=== PATIENT | female | born 2000 | race Caucasian/White ===

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

== ENCOUNTER 2019-02-14 10:48 | Emergency (ER) | payer MEDICAID, SELFPAY ==
[2019-02-14 10:51] VITALS: BP 132/86; PULSE 86; RESP 16; TEMP 36.7; O2SAT 99
--- NOTE | 2019-02-14 11:04 | NUR.NOTE ---
Nursing Note: Patient reports that she has a date that she plans on hanging herself. This date being the . She says that this will give her enough time to decide if it is what she really wants. She says she has tried to kill herself by cutting, OD and hanging herself before. She denies any changes in her life or any factors that have caused her to begin feeling this way again. She was made aware of the plan of care in the ER and what the expectations are.
--- NOTE | 2019-02-14 11:08 | NUR.NOTE ---
Nursing Note: cuts noted to LFA that are about a week old as the patient reports.
[2019-02-14 11:32] LABS: Bilirubin Negative (Negative); Blood Negative (Negative); Clarity Clear (Clear); Glucose Negative (Negative); Ketones Negative (Negative); Leukocyte Esterase Negative (Negative); Nitrite Negative (Negative); Specific Gravity 1.015 (1.005-1.025); Urobilinogen 0.2 EU/dL (Up TO 0.2)
[2019-02-14 11:36] LABS: Abs Immature Grans 0.02 k/cumm (0.0-0.09); Absolute Basophil Count 0.02 k/cumm (0.0-0.2); Absolute Eosinophil Count 0.15 k/cumm (0.0-0.7); Absolute Lymphocyte Count 2.24 k/cumm (1.2-3.4); Absolute Monocyte Count 0.81 k/cumm (0.11-0.7); Absolute Neutrophil Count 4.85 k/cumm (1.2-6.7); Basophils % 0.2; Eosinophils % 1.9; HCT 40.8 % (36.0-46.0); HGB 13.9 g/dL (12.0-15.5); Immature Grans % 0.2; Lymphocytes % 27.7; Mean Corp. HGB Concentration 34.1 g/dL (32.0-36.0); Mean Corpuscular Hemoglobin 30.9 pg (27.0-33.0); Mean Corpuscular Volume 90.7 fL (80-95); Mean Platelet Volume 10.2 fL (8.0-11.0); Platelet Count 285 x1000/uL (130-400); RBC Distribution Width 12.9 % (11.7-14.6); White Blood Cell Count 8.09 k/cumm (4.4-10.8)
[2019-02-14 11:40] LABS: *AMPHETAMINES SCREEN URINE Negative (Negative); *BARBITURATES SCREEN URINE Negative (Negative); *BENZODIAZEPINES SCREEN URINE Negative (Negative); Cannabinoids THC POSITIVE (Negative); Cocaine Screen,Urine Negative (Negative); METHADONE URINE SCREEN Negative (Negative); OPIATES URINE SCREEN Negative (Negative)
[2019-02-14 11:41] LABS: Tricyclic Antidepressants Negative (Negative)
[2019-02-14 11:58] LABS: ALT 14 U/L (14-59); AST 13 U/L (15-37); Albumin 3.6 g/dL (3.4-5.0); Alkaline Phosphatase 63 U/L (46-116); Anion Gap 12.3 mmol/L (3-11); BUN 10 mg/dL (7-18); Bilirubin, Total 0.2 mg/dL (0.2-1.0); CO2 25.7 mmol/L (21.0-32.0); CREATININE 0.69 mg/dL (0.55-1.02); Calcium 8.4 mg/dL (8.5-10.1); Chloride 104 mmol/L (98-107); Glucose 81 mg/dL (70-100); Sodium 142 mmol/L (136-145); TSH (W/Ref FT4) 0.57 uIU/mL (0.52-4.13); Total Protein 7.3 g/dL (6.4-8.2)
[2019-02-14 12:11] LABS: ETHANOL BLOOD < 3.0 mg/dL (<3)
[2019-02-14 12:14] LABS: Salicylate < 2.8 mg/dL (2.8-20.0)
[2019-02-14 12:34] LABS: Acetaminophen < 2 ug/mL (10-30)
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
[2019-02-14] MEDS: Potassium Chloride 20 MEQ TABCR 40 MEQ PO (14:05)
[2019-02-14 14:44] VITALS: BP 118/57; PULSE 77; RESP 14; TEMP 36.9; O2SAT 97
== END 2019-02-14 15:15 | disposition home or self-care (01) ==
PROVIDERS: Emergency Provider Nurse Practitioner Family; PCP Obstetrics & Gynecology
DX: F41.8 Other specified anxiety disorders (principal); R45.851 Suicidal ideations
CPT/HCPCS: 36415; 80053; 80307; 81025; 99285; 80320; 80329; 81003; 84443; 85025; 99284

== ENCOUNTER 2019-04-26 12:57 | Emergency (ER) | payer MEDICAID, SELFPAY ==
[2019-04-26 13:04] VITALS: BP 113/48; PULSE 81; RESP 12; TEMP 36.6; O2SAT 100
--- NOTE | 2019-04-26 13:17 | ED.GENADUL_ITS ---
Discharge Plan Disposition Patient Disposition: HOME Condition: Improving Discharge Details Chief Complaint: Sorethroat Clinical Impression: Pharyngitis Primary Care Provider: None,None ED Provider: Luan Faye Home Meds and New Rx's Prescriptions: Continued ibuprofen 400 mg tablet 400 mg PO Q8H RF: 0 citalopram [Celexa] 20 mg tablet 40 mg PO DAILY Qty: 60 RF: 6 norethindrone (contraceptive) [Ortho Micronor] 0.35 mg tablet 0.35 mg PO DAILY Qty: 84 RF: 3 Discharge Instructions Instructions: Pharyngitis (ED) Additional Instructions: Small, frequent sips of fluids to maintain hydration. May use popsicles for soothing comfort as well. May use Tylenol and/or ibuprofen if needed for pain. Cepacol lozenges and prednisone as prescribed. Return to the emergency department if difficulty swallowing, change to voice, worsening discomfort or any other acute concerns. Medical Decision Making 18-year-old female presents with sore throat for 2 days time. Reports a history of pharyngitis in the past. She has otherwise been well. Her exam is consistent with a mild pharyngitis, there is no overlying exudate. Rapid strep test was negative and a strep screen was sent to the laboratory. We will treat with a short course of steroid for its anti-inflammatory properties. Discussed with her home care as well as return precautions. HPI General Mode of arrival: ambulatory . Date/Time Provider Initiated Documentation: 04/26/19 13:00 . Limitations to Documentation: no limitations . Information obtained by: patient . History of Present Illness 18 year old F presents to the emergency department with the chief complaint of ST x1day, described as mild, Quality is described as constant, and is localized to the mouth. Patient reports no radiation. Patient started experiencing this hour(s) and it has been constant. No relieving factors improve symptom(s), No exacerbating factors reported . Patient notes fever/chills. Related Data Home Medications Medication Instructions Recorded Confirmed ibuprofen 400 mg tablet 400 mg PO Q8H 01/11/19 04/26/19 norethindrone (contraceptive) 0.35 0.35 mg PO DAILY #84 tab 02/28/19 04/26/19 mg tablet citalopram 20 mg tablet 40 mg PO DAILY #60 tab 10/21/19 12/13/19 Previous Rx's Medication Instructions Recorded norethindrone (contraceptive) 0.35 0.35 mg PO DAILY #84 tab 02/28/19 mg tablet citalopram 20 mg tablet 40 mg PO DAILY #60 tab 03/04/19 Allergies Allergy/AdvReac Type Severity Reaction Status Date / Time No Known Allergies Allergy Unverified 04/26/19 13:07 General Stated Complaint: Sorethroat BART: 4 Review of Systems Narrative: 6 systems reviewed and otherwise - PFSH Medical History Bipolar depression Foster care child Incomplete spontaneous (Inactive) Insomnia (Inactive) PTSD (post-traumatic stress disorder) Family History Mother No problems noted. Grandmother Anxiety Other Substance abuse Social History Smoking/Tobacco Use Status: Never Alcohol Intake: former Drug use: Daily Substance use type: marijuana Seatbelt use: always Do you feel safe at home: Yes Do you feel safe in your relationship?: Yes History History 1 Para 0 Hx # Term Pregnancies Multiple births Hx # Pregnancies Ectopic pregnancies AB induced Hx Number of Living Children AB spontaneous 1 Past Pregnancies Del. Date GA/Weeks # Outcome Route Wgt Sex Labor Lgth Anesthes ia Location [facility] 12/11/[address] Chang Delivery Date: 12/11/18 On 12/12/18 @ 09:43 Kathy Jones LPN Pt had a D/C for complete and incomplete SAB Exam Narrative Exam Narrative: GEN: awake, alert, oriented 3. Pleasant, well groomed, interactive. HEAD: Normocephalic, atraumatic ENT: Mucous membranes moist, oropharynx erythematous with mild left tonsillar swelling, the uvula is midline, tympanic membranes clear bilaterally, External ear exam unremarkable EYES: PERRL, EOMI NECK: Full ROM, no JACKELINE, no menigismus CHEST/RESP: Nontender, clear to auscultation bilateral, no wheeze/rhonchi/rales CARDIOVASCULAR: RRR, no murmur, rub patrick. 2+ Rad pulse bilateral EXT: Full ROM, no edema, no rash Neuro: Grossly normal neurologic exam, conversant, interactive. Psych: Speech fluent, thoughts congruent, affect normal Course Vital Signs Vital signs: Vital Signs Temperature 36.6 C 04/26/19 13:04 Pulse 81 04/26/19 13:04 Respiratory Rate 12 04/26/19 13:04 Blood Pressure 113/48 L 04/26/19 13:04 Pulse Oximetry 100 04/26/19 13:04 Temperature 36.6 C 04/26/19 13:04 Temperature Source Temporal Artery Scan 04/26/19 13:04 Pulse 81 04/26/19 13:04 Respiratory Rate 12 04/26/19 13:04 Respiratory Effort Non-Labored 04/26/19 13:06 Blood Pressure 113/48 L 04/26/19 13:04 Blood Pressure Position Sitting 04/26/19 13:04 Pulse Oximetry 100 04/26/19 13:04 Oxygen Delivery Method Room Air 04/26/19 13:04 Oxygen Flow Rate 0 04/26/19 13:04 Pain Level 3 04/26/19 13:04
== END 2019-04-26 13:50 | disposition home or self-care (01) ==
PROVIDERS: Emergency Provider Emergency Medicine
DX: J02.9 Acute pharyngitis, unspecified (principal)
CPT/HCPCS: 87880; 99283; 87081

== ENCOUNTER 2019-05-13 17:22 | Emergency (ER) | payer MEDICAID, SELFPAY ==
[2019-05-13 17:26] VITALS: BP 108/52; PULSE 95; RESP 14; TEMP 36.7; O2SAT 98
--- NOTE | 2019-05-13 17:36 | ED.GENADUL_ITS ---
Discharge Plan Disposition Patient Disposition: HOME Condition: Stable Discharge Details Chief Complaint: RespSymp Clinical Impression: Sinusitis Primary Care Provider: None,None ED Provider: Pepe Jovel Home Meds and New Rx's Prescriptions: New prednisone 20 mg tablet 60 mg PO DAILY 4 Days Qty: 12 RF: 0 Continued ibuprofen 400 mg tablet 400 mg PO Q8H RF: 0 citalopram [Celexa] 20 mg tablet 40 mg PO DAILY Qty: 60 RF: 6 norethindrone (contraceptive) [Ortho Micronor] 0.35 mg tablet 0.35 mg PO DAILY Qty: 84 RF: 3 Cepacol Sore Throat (peace-men) 15-2.6 mg lozenge 1 brandie MM Q4H PRN (Reason: sore throat) Qty: 16 RF: 0 Discharge Instructions Instructions: Sinusitis (ED) Additional Instructions: if not better in a week follow up with provider of your choice if you feel more ill have worsening shortness of breath or high fevers return to the emergency department Medical Decision Making 18 yo female with hx of asthma comes in with chief complaint of sinus pressure and nasal congestion for 3 days without fevers, vomit, rashes, abdominal pain. She is in no distress on exam, has clear lung sounds, clear rhinorrhea and no murmurs and normal oropharynx. Suspect viral uri vs viral sinusitis and given only 3 days of symptoms abx not indicated. She appears wlel systemically and has normal lung exam so doubt pna, do not feel xray or labs indicated. Will d/c and advised f/u in a week if not better or return sooner if worsening Differential Diagnosis Differential Diagnosis: viral uri, sinusitis HPI General Mode of arrival: ambulatory . Date/Time Provider Initiated Documentation: 05/13/19 17:31 . Limitations to Documentation: no limitations . Information obtained by: patient . History of Present Illness 18 year old F presents to the emergency department with the chief complaint of sinus pressure, described as moderate, and it has been constant. No relieving factors improve symptom(s), No exacerbating factors reported . Related Data Home Medications Medication Instructions Recorded Confirmed ibuprofen 400 mg tablet 400 mg PO Q8H 01/11/19 05/13/19 norethindrone (contraceptive) 0.35 0.35 mg PO DAILY #84 tab 02/28/19 05/13/19 mg tablet citalopram 20 mg tablet 40 mg PO DAILY #60 tab 03/04/19 05/13/19 Cepacol Sore Throat (peace-men) 1 brandie MM Q4H PRN #16 each 04/26/19 05/13/19 prednisone 60 mg PO DAILY 4 Days #12 tab 05/13/19 Previous Rx's Medication Instructions Recorded norethindrone (contraceptive) 0.35 0.35 mg PO DAILY #84 tab 02/28/19 mg tablet citalopram 20 mg tablet 40 mg PO DAILY #60 tab 03/04/19 Cepacol Sore Throat (peace-men) 1 brandie MM Q4H PRN #16 each 04/26/19 prednisone 60 mg PO DAILY 4 Days #12 tab 05/13/19 Allergies Allergy/AdvReac Type Severity Reaction Status Date / Time No Known Allergies Allergy Unverified 05/13/19 17:29 General Stated Complaint: RespSymp BART: 3 Review of Systems All systems reviewed & are unremarkable except as noted in HPI and below Constitutional Constitutional: Denies chills and Denies fever(s) Cardiovascular Cardiovascular: Denies dyspnea Respiratory Respiratory: Denies cough and Denies dyspnea Gastrointestinal Gastrointestinal: Denies abdominal pain, Denies nausea and Denies vomiting Musculoskeletal Musculoskeletal: Denies joint swelling PFSH Social History Smoking/Tobacco Use Status: Never Alcohol Intake: former Drug use: Daily Substance use type: marijuana Seatbelt use: always Do you feel safe at home: Yes Do you feel safe in your relationship?: Yes History History 1 Para 0 Hx # Term Pregnancies Multiple births Hx # Pregnancies Ectopic pregnancies AB induced Hx Number of Living Children AB spontaneous 1 Past Pregnancies Del. Date GA/Weeks # Outcome Route Wgt Sex Labor Lgth Anesthes ia Location Prov Complic 12/11/[address] Chang Delivery Date: 12/11/18 On 12/12/18 @ 09:43 Kathy Jones LPN Pt had a D/C for complete and incomplete SAB Exam Const General: no acute distress Orientation: alert HENMT Head: normal to inspection Ears: external ears normal General nose exam: external nose normal Mouth: moist mucous membranes Eyes General: appearance normal, both eyes and all related structures Neck Neck: normal visual inspection Resp Effort & Inspection: normal respiratory effort and able to speak in complete sentences Cardio Rate: regular rate Skin General skin exam: no rashes or lesions noted Neuro General: alert and oriented x3 Extrem General: normal to inspection Psych Mental Status: mental status grossly normal Course Vital Signs Vital signs: Vital Signs Temperature 36.7 C 05/13/19 17:26 Pulse 95 H 05/13/19 17:26 Respiratory Rate 14 05/13/19 17:26 Blood Pressure 108/52 L 05/13/19 17:26 Pulse Oximetry 98 05/13/19 17:26 Temperature 36.7 C 05/13/19 17:26 Temperature Source Temporal Artery Scan 05/13/19 17:26 Pulse 95 H 05/13/19 17:26 Respiratory Rate 14 05/13/19 17:26 Respiratory Effort Non-Labored 05/13/19 17:28 Blood Pressure 108/52 L 05/13/19 17:26 Blood Pressure Position Sitting 05/13/19 17:26 Pulse Oximetry 98 05/13/19 17:26 Oxygen Delivery Method Room Air 05/13/19 17:26 Oxygen Flow Rate 0 05/13/19 17:26 Pain Level 0 05/13/19 17:26
== END 2019-05-13 17:49 | disposition home or self-care (01) ==
PROVIDERS: Emergency Provider Emergency Medicine
DX: J01.90 Acute sinusitis, unspecified (principal)
CPT/HCPCS: 99283

== ENCOUNTER 2019-07-19 13:17 | Emergency (ER) | payer MEDICAID, SELFPAY ==
--- NOTE | 2019-07-19 13:24 | ED.GENADUL_ITS ---
Discharge Plan Disposition Patient Disposition: HOME Condition: Stable Discharge Details Chief Complaint: RespSymp Clinical Impression: Cough Primary Care Provider: None,None ED Provider: Mary Mancini Home Meds and New Rx's Prescriptions: New benzonatate [Tessalon Perles] 100 mg capsule 100 mg PO TID PRN (Reason: cough) Qty: 14 RF: 0 albuterol sulfate 90 mcg/actuation aerosol powdr breath activated 2 inh IH Q6H PRN (Reason: shortness of breath or wheezing) Qty: 1 RF: 0 No Action ibuprofen 400 mg tablet 400 mg PO Q8H RF: 0 Discharge Instructions Instructions: Acute Cough (ED) Additional Instructions: Drink plenty of fluids and get plenty of rest. Alternate tylenol and motrin as needed and directed for pain. Take the cough medication as needed and directed. Use the inhaler as needed and directed for shortness of breath or wheezing. Follow-up with your primary care doctor in 1 week. Return to the emergency department with any worsening or new concerning symptoms. Discharge Data Discharge Date/Time-TO BE ENTERED AT DEPARTURE: 07/19/19 13:54 Discharge Physician: Mary Mancini Medical Decision Making 18-year-old female who identifies as transgender with a history of remote asthma presents with cough for the past 2 weeks. She does admit to occasional wheezing mainly at night as well as subjective fevers last week. Cough was productive of yellow sputum but now clear. She took a bus from [place] recently but states she has had cold symptoms prior to her travel. Patient appears nontoxic. Her vitals within normal limits. Lungs are clear without wheezing or rhonchi. Normal ENT exam. As patient has normal vital signs, no recent fevers, no purulent sputum, and no persistent complaint of shortness of breath, history and presentation not consistent with pneumonia or bronchitis. Discussed that she could have a viral URI contributing to her symptoms. Her history and presentation also is not consistent with coronavirus as she has not traveled outside the country or to areas where there is high prevalence of coronavirus thus far. Do not see indication for testing for influenza as she has been sick with cold symptoms for 2 weeks. We will give a prescription for Tessalon Perles and albuterol inhaler. Advised to follow up with the primary care doctor for re-evaluation. Usual and customary return precautions given prior to discharge. HPI General Mode of arrival: ambulatory . Date/Time Provider Initiated Documentation: 07/19/19 13:20 . Limitations to Documentation: no limitations . Information obtained by: patient . HPI Narrative: Patient is a 18-year-old female with a remote history of asthma presents with cough for the past 2 weeks. She states it was productive of yellow sputum but is now mainly clear. She wise s admit to intermittent shortness of breath but states this occurs mainly at nighttime with wheezing. She does admit to intermittent feelings of fever a few days ago but denies this today and has not taken her temperature and has just felt feverish. She admits to one episode of vomiting today after forceful coughing. She has taken DayQuil and ibuprofen for symptoms. She states she recently took a bus from [place] but denies any travel outside of the country. She states she had cold symptoms prior to her recent travel. Related Data Home Medications Medication Instructions Recorded Confirmed ibuprofen 400 mg tablet 400 mg PO Q8H 01/11/19 05/13/19 albuterol sulfate 2 inh IH Q6H PRN #1 each 07/19/19 benzonatate [Tessalon Perles] 100 mg PO TID PRN #14 cap 07/19/19 Previous Rx's Medication Instructions Recorded albuterol sulfate 2 inh IH Q6H PRN #1 each 07/19/19 benzonatate [Tessalon Perles] 100 mg PO TID PRN #14 cap 07/19/19 Allergies Allergy/AdvReac Type Severity Reaction Status Date / Time No Known Allergies Allergy Unverified 07/19/19 13:39 General BART: 3 Review of Systems All systems reviewed & are unremarkable except as noted in HPI and below Constitutional Constitutional: Reports as per HPI, Denies chills and Denies fever(s) Eyes Eyes: Denies blurry vision ENT Ears, Nose, Mouth, and Throat: Denies dizziness, Denies sore throat and Denies throat swelling Cardiovascular Cardiovascular: Denies chest pain and Denies dyspnea Respiratory Respiratory: Reports cough and Denies dyspnea Gastrointestinal Gastrointestinal: Denies abdominal pain, Denies diarrhea and Denies vomiting Genitourinary Genitourinary: Denies hematuria and Denies dysuria Musculoskeletal Musculoskeletal: Denies back pain and Denies numbness Integumentary/Breasts Skin/Breast: Denies lesions and Denies rash Neurologic Neurologic: Denies dizziness, Denies focal weakness and Denies numbness Allergic/Immunologic Allergic/Immunologic: Denies throat swelling PFSH Social History Smoking/Tobacco Use Status: Current-Occasional Alcohol Intake: former Drug use: Daily Substance use type: marijuana Seatbelt use: always Do you feel safe at home: Yes Do you feel safe in your relationship?: Yes History History 1 Para 0 Hx # Term Pregnancies Multiple births Hx # Pregnancies Ectopic pregnancies AB induced Hx Number of Living Children AB spontaneous 1 Past Pregnancies Del. Date GA/Weeks # Outcome Route Wgt Sex Labor Lgth Anesthes ia Location Prov Complic 12/11/[address] Chang Delivery Date: 12/11/18 On 12/12/18 @ 09:43 Robert SMITH,Kathy Pt had a D/C for complete and incomplete SAB Exam Const General: cooperative, healthy appearing and no acute distress HENMT Head: normal to inspection Ears: hearing grossly normal bilaterally, external ears normal and TM's normal bilaterally General nose exam: external nose normal Mouth: oral mucosae normal Throat: posterior oropharynx normal Eyes General: appearance normal, both eyes and all related structures Neck Neck: normal visual inspection Resp Effort & Inspection: normal respiratory effort and able to speak in complete sentences Auscultation: clear to auscultation bilaterally, no rhonchi and no wheezes Cardio Rate: regular rate Rhythm: regular rhythm Skin General skin exam: no rashes or lesions noted Neuro General: alert, awake and oriented x3 Motor: muscle tone normal throughout Extrem General: normal to inspection and full ROM Psych Appearance: grossly normal Affect: normal affect
[2019-07-19 13:31] VITALS: BP 107/58; PULSE 64; RESP 18; TEMP 36.8; O2SAT 99
[2019-07-19 13:51] VITALS: BP 107/58; PULSE 64; RESP 18; TEMP 36.8; O2SAT 99
== END 2019-07-19 13:54 | disposition home or self-care (01) ==
PROVIDERS: Emergency Provider Physician Assistant
DX: R05 Cough (principal); F17.210 Nicotine dependence, cigarettes, uncomplicated
CPT/HCPCS: 99283